=== PATIENT | male | born 1960 | race Caucasian/White ===

== ENCOUNTER 2022-01-19 11:36 | Emergency (ER) | payer BC ==
[2022-01-19] MEDS ORDERED: traMADol 50 MG Tab PO ONE (11:50)
== END 2022-01-19 13:33 | disposition home or self-care (01) ==
LOC: MW.ED 11:36
DX: S81.811A Laceration without foreign body, right lower leg, initial encounter (principal); W19.XXXA Unspecified fall, initial encounter
CPT/HCPCS: 93971-26-RT; 93971-RT; 99283-25